=== PATIENT | female | born 1985 | race Caucasian/White ===

== ENCOUNTER → 2016-04-16 | Outpatient (CLI) | payer OTHER | END | disposition home or self-care (01) | LOC: C.PAPS 11:40 | PROVIDERS: ATTEND Obstetrics & Gynecology | DX: Z12.4 Encounter for screening for malignant neoplasm of cervix (principal); A63.0 Anogenital (venereal) warts ==

== ENCOUNTER → 2016-07-20 | Outpatient (CLI) | payer OTHER ==
[~2016-07-20] MED LIST: ARTIOIN OP; CETITAB27 PO; CHOL1TAB42 PO; FLUT0.15 INH; NAPR1TAB9 PO; PRED20TA2 PO; VALA1TAB31 PO
[2016-07-20 12:54] LABS: CHOLESTEROL/HDL RATIO 3.1
== END | disposition home or self-care (01) ==
LOC: C.LABBFT 07:37
PROVIDERS: ATTEND Internal Medicine
DX: Z00.00 Encounter for general adult medical examination without abnormal findings (principal)

== ENCOUNTER 2016-12-11 18:23 | Emergency (ER) | payer OTHER ==
[~2016-12-11] VITALS: Ht 162.6 cm; Wt 99.4 kg
[2016-12-11 18:30] VITALS: TEMP 37.1; Ht 162.6 cm; Wt 99.4 kg
[2016-12-11] MEDS ORDERED: CHOL1TAB42 PO (18:58)
[2016-12-11] MEDS ORDERED: CETITAB27 PO (18:58)
[2016-12-11] MEDS ORDERED: NAPR1TAB9 PO (18:58)
[2016-12-11] MEDS ORDERED: FLUT0.15 INH (18:58)
--- NOTE | 2016-12-11 19:03 | EMERGENCY ROOM VISIT NOTE ---
History First contact with patient: 18:37 Chief Complaint: HEADACHE Stated Complaint: LEFT SIDE FACIAL NUMBNESS, METAL TASTE,HEADACHE History of Present Illness The patient is a 31 year old female who presents to the Emergency Room with complaints of neurologic symptoms that started at approximately 1745 this evening. The patient reports fighting a cold with a runny nose for the last 5 days. She has been taking urta-vas-pgnohcn the medication with good symptomatic relief. She denies any fever or chills. The patient left work early today because of a headache. She laid down for a nap. When she woke up around 1745, she noticed that the left side of her face felt numb. She also complains of a metallic taste with the left side of her tongue. She also thinks that the right side of her face may be weak. She denies any weakness in her extremities. No slurred speech or confusion. The headache is improving. Review of Systems 10 system review performed and negative unless noted in HPI or below Past Medical/Surgical History Asthma Social History Smoking Status: Never Smoker Marital Status: Housing Status: lives with significant other Occupation Status: employed Current/Historical Medications Scheduled Cholecalciferol (Vitamin D), 1 TAB PO DAILY Fluticasone Propionate (Nasal) (Flonase Allergy Relief), 1 SPRAY INH BID Naproxen (Aleve), 220 MG PO prn ud Scheduled PRN Cetirizine/Pseudoephedrine (Zyrtec-D Er 5MG/120MG), 1 TAB PO Q12H PRN for Seasonal Allergies Physical Exam Vital Signs Date Time Temp Pulse Resp B/P (MAP) Pulse Ox O2 Delivery O2 Flow Rate FiO2 12/11/16 18:30 37.1 85 18 135/88 100 Room Air Physical Exam VITALS: Vitals are noted on the nurse's note and reviewed by myself. Vital signs stable. GENERAL: 31-year-old female, slightly anxious in appearance, nondiaphoretic, well-developed well-nourished. SKIN: The skin was without rashes, erythema, edema, or bruising. HEAD: Normocephalic atraumatic. EARS: External auditory canals clear, tympanic membranes pearly molina without erythema or effusion bilaterally. EYES: Pupils equal round and reactive to light and accommodation. Conjunctivae without injection, sclerae without icterus. Extraocular movements intact. MOUTH: Mucous membranes moist. Tonsils are not enlarged. Pharynx without erythema or exudate. Uvula midline. Airway patent. Tongue does not deviate. NECK: Supple without nuchal rigidity. No lymphadenopathy. HEART: Regular rate and rhythm without murmurs gallops or rubs. LUNGS: Clear to auscultation bilaterally without wheezes, rales or rhonchi. No accessory muscle use. ABDOMEN: Positive bowel sounds x 4.Soft, nontender, without organomegaly. No guarding or rebound tenderness. MUSCULOSKELETAL: Strength 5/5 throughout. NEURO: Patient was alert and oriented to person place and time. Right-sided facial droop noted. Subjective numbness on the left side of the face. Cerebellar function intact. Negative Romberg. Strength otherwise 5/5 throughout. Medical Decision & Procedures ER Provider Diagnostic Interpretation: CT head without contrast IMPRESSION: No acute intracranial abnormality. Laboratory Results 12/11/16 19:01 Red Blood Count 4.30, Mean Corpuscular Volume 90.7, Mean Corpuscular Hemoglobin 29.8, Mean Corpuscular Hemoglobin Concent 32.8, Mean Platelet Volume 8.8, Neutrophils (%) (Auto) 64.8, Lymphocytes (%) (Auto) 27.6, Monocytes (%) (Auto) 6.3, Eosinophils (%) (Auto) 0.9, Basophils (%) (Auto) 0.3, Neutrophils # (Auto) 4.41, Lymphocytes # (Auto) 1.88, Monocytes # (Auto) 0.43, Eosinophils # (Auto) 0.06, Basophils # (Auto) 0.02 12/11/16 19:01 Test 12/11/16 19:01 12/11/16 19:10 White Blood Count 6.81 K/uL (4.8-10.8) Red Blood Count 4.30 M/uL (4.2-5.4) Hemoglobin 12.8 g/dL (12.0-16.0) Hematocrit 39.0 % (37-47) Mean Corpuscular Volume 90.7 fL (80-100) Mean Corpuscular Hemoglobin 29.8 pg (25-34) Mean Corpuscular Hemoglobin Concent 32.8 g/dl (32-36) Platelet Count 257 K/uL (130-400) Mean Platelet Volume 8.8 fL (7.4-10.4) Neutrophils (%) (Auto) 64.8 % Lymphocytes (%) (Auto) 27.6 % Monocytes (%) (Auto) 6.3 % Eosinophils (%) (Auto) 0.9 % Basophils (%) (Auto) 0.3 % Neutrophils # (Auto) 4.41 K/uL (1.4-6.5) Lymphocytes # (Auto) 1.88 K/uL (1.2-3.4) Monocytes # (Auto) 0.43 K/uL (0.11-0.59) Eosinophils # (Auto) 0.06 K/uL (0-0.5) Basophils # (Auto) 0.02 K/uL (0-0.2) RDW Standard Deviation 39.7 fL (36.4-46.3) RDW Coefficient of Variation 12.1 % (11.5-14.5) Immature Granulocyte % (Auto) 0.1 % Immature Granulocyte # (Auto) 0.01 K/uL (0.00-0.02) Anion Gap 7.0 mmol/L (3-11) Est Creatinine Clear Calc Drug Dose 102.9 ml/min Estimated GFR () 98.1 Estimated GFR (Non- 84.6 BUN/Creatinine Ratio 15.2 (10-20) Calcium Level 8.6 mg/dl (8.5-10.1) Total Bilirubin 0.3 mg/dl (0.2-1) Aspartate Amino Transf (AST/SGOT) 12 U/L (15-37) Alanine Aminotransferase (ALT/SGPT) 16 U/L (12-78) Alkaline Phosphatase 100 U/L (45-117) Total Protein 6.8 gm/dl (6.4-8.2) Albumin 3.5 gm/dl (3.4-5.0) Globulin 3.3 gm/dl (2.5-4.0) Albumin/Globulin Ratio 1.1 (0.9-2) Lyme Disease IgG Antibody NEG (NEG) Lyme Disease IgM Antibody NEG (NEG) Urine Test NEG (NEG) Medications Administered Medications (Trade) Dose Ordered Sig/Cat Route Start Time Stop Time Status Last Admin Dose Admin Artificial Tears (Lacri-Lube Oph Oint) 1 appln NOW ONCE OP 12/11/16 19:30 12/11/16 19:31 DC 12/11/16 19:28 1 APPLN ED Course Patient was seen and examined Vital signs including blood pressure were reviewed medications list was verified with patient Labs were obtained, and a saline lock was established Imaging was performed and reviewed Lacri-Lube was applied to the right eye. The patient was reassessed and resting comfortably. We discussed the results of her workup. She voiced understanding. I reviewed discharge instructions the patient. They voiced understanding and had no further questions. Medical Decision Differential diagnosis: Llanes's palsy, other viral syndrome, disseminated Lyme disease, CVA, vertebral artery dissection, This patient is a 31-year-old female that presents to the emergency department with right-sided facial droop and left-sided facial numbness. My thought was that this was likely Llanes's palsy or possibly disseminated Lyme disease. A CT of the head was performed. No acute findings were noted. Her Lyme screen is negative. Her lab work is unremarkable. 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 The patient will be treated with valacyclovir and prednisone. She was counseled on eye care. She will follow-up with her primary care physician for recheck next week. She will also follow-up with an mineralogy professor to prevent damage to the cornea. She agreed to return to the emergency department immediately with any worsening headache or neck pain. She is comfortable with this plan, was discharged in good condition This chart was completed in part utilizing [employer] Speech Voice Recognition software. Attempts were made to minimize the grammatical errors, random word insertions, pronoun errors and incomplete sentences. Any formal questions or concerns about the content, text or information contained within the body of this dictation should be directly addressed to the provider for clarification. Medication Reconcilliation Current Medication List: was personally reviewed by me Blood Pressure Screening Patient's blood pressure: Normal blood pressure Impression Primary Impression: Llanes's palsy Departure Information Dispostion Home / Self-Care Condition FAIR Prescriptions Valacyclovir Hcl (VALTREX) 1 Gm Tab 1 TAB PO TID for 7 Days, #21 TAB Prov: Misa Rondon PA-C 12/11/16 Prednisone (Prednisone Tab) 20 Mg Tab 4 TAB PO DAILY for 7 Days, #28 TAB 3 TABS DAILY FOR 2 DAYS, THEN 2 TABS DAILY FOR 2 DAYS, THEN 1 TAB DAILY FOR 2 DAYS, THEN 1/2 TAB DAILY FOR 2 DAYS. Prov: Misa Rondon PA-C 12/11/16 Artificial Tears Oph Oint (Lacri-Lube Sop Oph Oint) Oint 0.25-0.5 INCH OP QID, #1 TUBE TO THE AFFECTED EYE UP TO QID PRN Prov: Misa Rondon PA-C 12/11/16 Referrals Ruth Oconnell M.D. (PCP) Travon Keating M.D. Patient Instructions My [facility] Additional Instructions You were evaluated in the emergency department with neurologic symptoms of your face. It appears that you have Llanes's palsy. This will be treated with an antiviral medication and steroids. Please finish the entire course of valacyclovir. Please also finish the entire course of prednisone. Eye care is very important. Please apply Lacri-Lube to the right eye every 4 hours and every 2 hours as needed. You may substitute artificial tears during the day if the Lacri-Lube is causing difficulty with your vision. Please follow-up with your primary care physician next week for a recheck. Please follow-up with your mineralogy professor for ongoing eye care. Return immediately to the emergency department with any of the following symptoms -Severe headache or neck pain -New weakness -Fever
[2016-12-11 19:16] LABS: BASO % 0.3 %; BASO ABS # 0.02 K/uL (0-0.2); COMPLETE YES; EOS % 0.9 %; IG% 0.1 %; LYMPH % 27.6 %; LYMPH ABS # 1.88 K/uL (1.2-3.4); MEAN CELL VOLUME 90.7 fL (80-100); MEAN CORPUSCULAR HEMOGLOBIN 29.8 pg (25-34); MEAN CORPUSCULAR HGB CONC 32.8 g/dl (32-36); MEAN PLATELET VOLUME 8.8 fL (7.4-10.4); MONO % 6.3 %; NEUT % 64.8 %; PLATELET COUNT 257 K/uL (130-400); WHITE BLOOD COUNT 6.81 K/uL (4.8-10.8)
[2016-12-11] MEDS ORDERED: ARTIFICIAL TEARS OP OINT 3.5 GM TUBE OP ONE (19:30)
[2016-12-11 19:33] LABS: BUN/CREATININE RATIO 15.2 (10-20); CALCIUM 8.6 mg/dl (8.5-10.1); CREATININE 0.9 mg/dl (0.60-1.20); POTASSIUM 4.1 mmol/L (3.5-5.1)
[2016-12-11 19:35] LABS: ALB/GLOB RATIO 1.1 (0.9-2)
--- NOTE | 2016-12-11 19:44 | DIAGNOSTIC IMAGING REPORT ---
CT SCAN OF THE BRAIN WITHOUT IV CONTRAST CLINICAL HISTORY: Right-sided facial paralysis. Left facial numbness. Headache. COMPARISON STUDY: No priors. TECHNIQUE: Unenhanced axial CT scan of the brain is performed from the vertex to the skull base. A dose lowering technique was utilized adhering to the principles of ALARA. CT DOSE: 537.48 mGy.cm FINDINGS: Brain parenchyma: The brain parenchyma is normal in appearance. There is no hemorrhage, mass effect, or evidence of acute territorial ischemia by CT criteria. Ibarra-white matter is preserved. No extra-axial fluid collection is seen. Ventricles, sulci, cisterns: Normal in configuration. Intracranial vasculature: The visualized intracranial vasculature at the skull base is normal in appearance. Calvarium: Unremarkable. Sinuses and mastoids: The visualized paranasal sinuses are clear. The mastoid air cells are well pneumatized. Orbits: The bony orbits are grossly intact. IMPRESSION: No acute intracranial abnormality. Electronically signed by: Boston Garcia M.D. 12/11/2016 7:42 PM Dictated Date/Time: 12/11/2016 7:41 PM
[2016-12-11 20:08] LABS: LYME DISEASE AB IGG NEG (NEG); LYME DISEASE AB IGM NEG (NEG)
[2016-12-11] MEDS ORDERED: PRED20TA2 PO (20:28)
[2016-12-11] MEDS ORDERED: ARTIOIN OP (20:28)
[2016-12-11] MEDS ORDERED: VALA1TAB31 PO (20:28)
[2016-12-11 20:52] VITALS: BP 111/69; PULSE 70; O2SAT 100
== END 2016-12-11 20:53 | disposition home or self-care (01) ==
LOC: C.EDB 18:25
DX: G51.0 Bell's palsy (principal); J45.909 Unspecified asthma, uncomplicated

== ENCOUNTER → 2017-04-21 | Outpatient (CLI) | payer OTHER ==
[~2017-04-21] MED LIST changes: -PRED20TA2 PO; -VALA1TAB31 PO
== END | disposition home or self-care (01) ==
LOC: C.PAPS 12:26
PROVIDERS: ATTEND Obstetrics & Gynecology
DX: Z12.4 Encounter for screening for malignant neoplasm of cervix (principal)

== ENCOUNTER → 2017-05-20 | Outpatient (CLI) | payer OTHER ==
--- NOTE | 2017-05-20 16:16 | DIAGNOSTIC IMAGING REPORT ---
L TIBIA/FIBULA 2 VIEWS, R TIBIA/FIBULA 2 VIEWS HISTORY: 31 years-old Female B/L MARTINEZ PAIN acute bilateral mid tibial pain COMPARISON: None available TECHNIQUE: 2 views of the bilateral tibia and fibula FINDINGS: RIGHT: No acute fracture, dislocation or significant degenerative changes. 7 mm corticated bone fragment is noted adjacent to the distal fibula suggesting accessory ossicle or healed remote fracture fragment. No opaque foreign body. LEFT: There is no acute fracture, dislocation, significant degenerative changes or opaque foreign body. Soft tissues are within normal limits. IMPRESSION: No acute fracture or dislocation. The above report was generated using voice recognition software. It may contain grammatical, syntax or spelling errors. Electronically signed by: Lacho Corey M.D. 05/20/2017 4:14 PM Dictated Date/Time: 05/20/2017 4:12 PM
== END | disposition home or self-care (01) ==
LOC: C.RDSM 15:57
PROVIDERS: ATTEND Internal Medicine
DX: M79.669 Pain in unspecified lower leg (principal)

== ENCOUNTER → 2017-09-29 | Outpatient (CLI) | payer OTHER ==
[~2017-09-29] MED LIST changes: -ARTIOIN OP
== END | disposition home or self-care (01) ==
LOC: C.LABBFT 07:40
PROVIDERS: ATTEND Physician Assistant Medical
DX: Z00.00 Encounter for general adult medical examination without abnormal findings (principal)

== ENCOUNTER 2018-09-07 23:13 | Inpatient (IN) ==
[2018-09-08] MEDS ORDERED: OXYTOCIN 30 UNITS/500 ML BAG IV PRN ×3 (01:32→07:28)
[2018-09-08] MEDS ORDERED: BUPIVACAINE 0.25% 30 ML VIAL ONE (01:33)
[2018-09-08] MEDS ORDERED: fentaNYL 2MCG/ML ROPIV 1.25MG/ML 100 ML BAG EPI ONE (01:34)
[2018-09-08] MEDS ORDERED: fentaNYL citrate 100 MCG/2 ML VIAL ONE (01:34)
[2018-09-08] MEDS ORDERED: ePHEDrine sulfate 50 MG/ML AMP ONE (01:34)
[2018-09-08] MEDS: LACTATED RINGER'S 1,000 ML IV PRN ×2 (01:40→02:48)
[2018-09-08] MEDS ORDERED: CALCIUM CARBONATE 500 MG CHEWABLE TAB PO PRN (01:58)
[2018-09-08 01:59] LABS: Hematocrit (blood only) 37.4 % (37-47); Hemoglobin 12.6 g/dL (12.0-16.0); Mean Corpuscular Volume 89.7 fL (80-100); Mean Platelet Volume 9.9 fL (7.4-10.4); Platelet Count 232 K/uL (130-400); RDW Coefficient of Variation 14.4 % (11.5-14.5); RDW Standard Deviation 46.6 fL (36.4-46.3); Red Blood Count 4.17 M/uL (4.2-5.4); White Blood Count 13.53 K/uL (4.8-10.8)
[2018-09-08 02:01] LABS: Mean Corpuscular Hgb Conc 33.7 g/dL (32-36)
[2018-09-08] MEDS ORDERED: NALOXONE HCL 1 MG in SODIUM CHLORIDE 0.9% 1000ML 1,000 ML IV PRN (02:56)
[2018-09-08] MEDS ORDERED: DiphenhydrAMINE HCL 50 MG/ML VIAL IV PRN (02:56)
[2018-09-08] MEDS ORDERED: ONDANSETRON INJ 2 MG/ML 2 ML VIAL IV PRN (02:56)
[2018-09-08] MEDS ORDERED: NALOXONE HCL 0.4 MG/1 ML VIAL/CARP IV PRN (02:56)
[2018-09-08] MEDS ORDERED: NALBUPHINE HCL INJ 10 MG/ML AMP IV PRN (02:56)
[2018-09-08] MEDS ORDERED: PROMETHAZINE HCL 6.25 MG in SODIUM CHLORIDE 0.9% 50 ML IV PRN (02:56)
[2018-09-08] MEDS ORDERED: ePHEDrine sulfate 50 MG/ML AMP IV PRN (02:56)
[2018-09-08] MEDS ORDERED: fentaNYL 2MCG/ML ROPIV 1.25MG/ML 100 ML BAG EPI PRN (02:56)
--- NOTE | 2018-09-08 02:56 | Anesthesiology Consultation ---
Date of Service September 08, 2018 Assessment & Plan (1) Encounter for pre-operative examination: Chart Review Chart Review: Patient NOT seen in Pre Admission Testing and Acceptable Risk for Labor Epidural Consults Requested none ASA ASA3 Proposed Anesthesia Anesthesia Type: Labor Epidural Risk / Benefits Reviewed With: PT / POA / Parent / Guardian, Accepts Plan and Informed Consent Obtained History Height/Weight Height: 5 ft 4 in Weight: 126.099 kg Allergies Allergy/AdvReac Type Severity Reaction Status Date / Time amoxicillin Allergy Severe HIVES Verified 12/11/16 19:00 Medications Home Medications Medication Instructions Recorded Confirmed Last Taken albuterol sulfate [Ventolin HFA] 2 puff INHALATION QID PRN 09/08/18 09/08/18 Unknown cetirizine [Zyrtec] 10 mg PO DAILY 09/08/18 09/08/18 09/07/18 08:00 lansoprazole [Prevacid] 15 mg PO DAILY 09/08/18 09/08/18 09/07/18 08:00 methylcellulose (laxative) 500 mg PO DAILY 09/08/18 09/08/18 09/07/18 08:00 [Citrucel] vit no.[id number] 1 tab PO DAILY 09/08/18 09/08/18 09/07/18 08:00 [ Vitamin] Active Medications Generic Name Dose Route Start Last Admin Trade Name Freq PRN Reason Stop Dose Admin Lactated Ringer's 1,000 mls @ 125 mls/hr 09/08/18 01:32 09/08/18 02:49 Lr IV 09/10/18 01:31 125 mls/hr .Q8H PRN Infusion L&D Protocol Protocol Past Medical History Medical History Anxiety No meds Llanes's palsy 2016; 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 Depression No meds Exercise-induced asthma Inhaler prn GERD (gastroesophageal reflux disease) On meds HPV (human papilloma virus) infection 2011 and 2012 IBS (irritable bowel syndrome) On meds Exercise / Class Metabolic Activity II 4-5 Yardwork/Stairs/Walk up hill Past Surgical History Surgical History History of colposcopy 2011 and 2012 Hx of LASIK 2010 Past Anesthesia History No Hx of Anesthesia Complications and No Family Hx of Anesthesia Complications History of PONV No Hx of PONV and No Hx of Motion Sickness Social History Smoking Status: Never smoker Do You Dip or Chew Tobacco: No Hx Alcohol Use: No Hx Substance Use: No substance use type: does not use Physical Exam Vital Signs Last Vital Signs Temp 37.0 C 09/07/18 23:29 Pulse 97 H 09/08/18 02:55 Resp 18 09/07/18 23:29 BP 138/73 09/08/18 02:55 Pulse Ox 99 09/08/18 02:54 ENMT Mouth: no dentition abnormality Thyromental Distance: > or= 3.5 Finger Breadths Mallampati Class: II Neck normal visual inspection Respiratory normal respiratory effort Auscultation: lungs clear to auscultation bilaterally Cardiovascular Rate/Rhythm: regular rate and regular rhythm Psychiatric Orientation: alert Testing Laboratory Results 09/08/18 01:50
--- NOTE | 2018-09-08 06:16 | History & Physical Report ---
Date of Service September 08, 2018 Assessment & Plan (1) 39 weeks gestation of : (2) Normal labor: (3) Thin meconium stained amniotic fluid: will start 2nd stage, fhts categ 1 History of Present Illness Chief Complaint: regular ctx Primary Care Provider: Ruth Oconnell MD 33yo at 39+wks natalia presents to L&D with cc as noted. She contracted all day yesterday and then around midnight called and noted they were closer. Initial exam for nurse 3cm and then followup check 5cm, with regular ctx. No rom, no vb. +FM. pnc c/b 1. obesity 2. asthma 3. sleep disorder pnl rh pos, ri, gbs neg obh: g1 gynh: colpo x 2, nl recent pap, no stds pmh: anxiety, exercise asthma psh: lasik Allergies Allergy/AdvReac Type Severity Reaction Status Date / Time amoxicillin Allergy Severe HIVES Verified 12/11/16 19:00 Home Medications Home Medications Medication Instructions Recorded Confirmed Type albuterol sulfate [Ventolin HFA] 2 puff INHALATION QID PRN 09/08/18 09/08/18 History cetirizine [Zyrtec] 10 mg PO DAILY 09/08/18 09/08/18 History lansoprazole [Prevacid] 15 mg PO DAILY 09/08/18 09/08/18 History methylcellulose (laxative) 500 mg PO DAILY 09/08/18 09/08/18 History [Citrucel] vit no.[id number] 1 tab PO DAILY 09/08/18 09/08/18 History [ Vitamin] Patient History Medical History Anxiety No meds Llanes's palsy 2016; 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 Depression No meds Exercise-induced asthma Inhaler prn GERD (gastroesophageal reflux disease) On meds HPV (human papilloma virus) infection 2011 and 2012 IBS (irritable bowel syndrome) On meds Surgical History History of colposcopy 2011 and 2012 Hx of LASIK 2009 Social History Preferred Language: Khmer Communication Ability: Effective 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 Beliefs That Will Affect Care: None marital status: Current Living Situation: Spouse Other Information That Helps Us Care for You: No Feels Safe at Home: Yes Safety Concerns: Feels Safe At This Time Smoking Status: Never smoker Do You Dip or Chew Tobacco: No Second Hand Exposure: No Tobacco Cessation Education Requested by Patient: No Hx Alcohol Use: No Hx Substance Use: No Review of Systems per hpi Physical Exam Constitutional: WD/WN, vitals as above Gastrointestinal (Abdomen): gravid nt efw 8# Neurologic: grossly normal Genitourinary: OB Exam Abdomen: + vertex Manual OB Exam: + cervical dilation 10 cm, + cervical effacement 100% and + station + 3 OB Exam Monitor Tracing: + external FHT monitor used (125 mod variability, early decels), + external uterine monitor used (q2-4) and + category I Results & Data Vital Signs (Past 12 Hours) Vital Signs Temp Pulse Resp BP Pulse Ox 09/08/18 06:09 96 H 100 09/08/18 06:04 83 99 09/08/18 06:02 78 119/75 09/08/18 05:59 89 99 09/08/18 05:54 90 98 09/08/18 05:49 80 98 09/08/18 05:47 76 124/76 09/08/18 05:44 85 98 09/08/18 05:39 82 99 09/08/18 05:34 80 99 09/08/18 05:32 74 128/73 09/08/18 05:30 18 09/08/18 05:29 74 98 09/08/18 05:24 78 100 09/08/18 05:19 90 99 09/08/18 05:17 81 119/65 09/08/18 05:14 87 98 09/08/18 05:09 80 97 09/08/18 05:04 82 98 09/08/18 05:02 86 115/61 09/08/18 05:00 18 09/08/18 04:59 81 99 09/08/18 04:55 87 93 09/08/18 04:54 90 100 09/08/18 04:49 77 98 09/08/18 04:47 80 122/61 09/08/18 04:44 81 97 09/08/18 04:39 75 98 09/08/18 04:34 76 97 09/08/18 04:32 73 125/63 09/08/18 04:30 18 09/08/18 04:29 75 98 09/08/18 04:24 86 97 09/08/18 04:19 81 100 09/08/18 04:17 67 129/62 09/08/18 04:14 78 99 09/08/18 04:10 36.5 C 18 09/08/18 04:09 77 97 09/08/18 04:04 90 99 09/08/18 04:02 78 131/73 09/08/18 04:00 18 09/08/18 03:59 83 97 09/08/18 03:54 82 97 09/08/18 03:49 83 96 09/08/18 03:47 80 128/72 09/08/18 03:44 83 97 09/08/18 03:39 83 98 09/08/18 03:34 80 99 09/08/18 03:33 75 125/69 09/08/18 03:29 80 99 09/08/18 03:24 81 100 09/08/18 03:19 78 99 09/08/18 03:17 85 110/61 09/08/18 03:14 90 99 09/08/18 03:09 96 H 99 09/08/18 03:04 88 99 09/08/18 03:01 96 H 136/69 09/08/18 03:00 18 09/08/18 02:59 99 H 100 09/08/18 02:55 97 H 138/73 09/08/18 02:54 96 H 99 09/08/18 02:52 94 H 145/78 H 09/08/18 02:50 106 H 142/79 H 09/08/18 02:49 94 H 98 09/08/18 02:48 99 H 143/77 H 09/08/18 02:47 89 145/82 H 09/08/18 02:44 91 H 142/79 H 100 09/08/18 02:42 87 141/80 H 09/08/18 02:40 85 140/77 09/08/18 02:39 92 H 135/80 98 09/08/18 02:35 87 139/92 09/08/18 02:34 88 97 09/08/18 02:29 104 H 98 09/07/18 23:34 77 132/83 09/07/18 23:29 37.0 C 77 18 132/83
[2018-09-08] MEDS ORDERED: ALBUTEROL HFA 8 GM INHALER INH PRN (07:28)
[2018-09-08] MEDS ORDERED: SUPERCREAM 0.870% 15 GM JAR EXT PRN (07:28)
[2018-09-08] MEDS ORDERED: BENZOCAINE 20% AER SPR 82.5 GM CAN EXT PRN (07:28)
[2018-09-08] MEDS ORDERED: ACETAMINOPHEN 325 MG TAB PO PRN (07:28)
[2018-09-08] MEDS ORDERED: HYDROCORTISONE ACETATE 25 MG SUPP PR PRN (07:28)
[2018-09-08] MEDS ORDERED: OXYCODONE/ACETAMINOPHEN 5mg/325mg TAB PO PRN (07:28)
[2018-09-08] MEDS ORDERED: OXYTOCIN 20 UNITS in LACTATED RINGER'S 1,000 ML IV SCH (07:30)
--- NOTE | 2018-09-08 07:31 | Delivery Summary ---
DATE OF OPERATION: 09/08/2018 The patient dilated to complete and pushed to deliver a viable male , Apgars 8 and 9 via over partial third-degree laceration. Mouth and nose bulb suctioned at the perineum. Loose nuchal cord reduced x1. The shoulders and body delivered with ease. The was vigorous and crying at . Thin meconium had been noted through her labor. Cord clamped at 30 seconds of life and infant to maternal abdomen where the cord was then doubly clamped and cut. Placenta delivered spontaneously and intact, 3-vessel cord. Hemostasis achieved with dilute Pitocin and uterine massage. Bladder drained under sterile conditions for approximately 100 mL of clear yellow urine. Laceration repaired in usual fashion, first by reapproximating the sphincter capsule with 2-0 Vicryl interrupted sutures followed by routine repair of the perineal laceration with 3-0 Vicryl. Mother and baby stable in recovery. EBL 300 mL. I attest to the content of the Intraoperative Record and any orders documented therein. Any exception s are noted below.
[2018-09-08] MEDS ORDERED: DIPHTHERIA/TETANUS/PERTUSSIS 0.5 ML SYR/VIAL IM ONE (07:34)
[2018-09-08] MEDS ORDERED: METHYLCELLULOSE 500 MG PO SCH (09:00)
--- NOTE | 2018-09-08 09:03 | Anesthesia Procedure Note ---
Date of Service September 08, 2018 Anesthesia Post Epidural Note Vital Signs Vital Signs: Temp Pulse Resp BP Pulse Ox 36.7 C 96 H 18 134/83 92 09/08/18 06:13 09/08/18 08:59 09/08/18 06:30 09/08/18 08:59 09/08/18 07:27 Pain Intensity Bilateral Abdomen: Pain Intensity: 3 Notes Mental Status: alert / awake / arousable Patient Amnestic to Procedure: No Nausea / Vomiting: adequately controlled Pain: adequately controlled Airway Patency, RR, SpO2: stable & adequate BP & HR: stable & adequate Hydration State: stable & adequate Neuraxial Anesthesia: was administered and sensory block resolved Anesthetic Complications: no major complications apparent and Pt Satisfied with anesthetic care
[2018-09-08] MEDS: PRENATAL VITAMIN 1 TAB PO SCH (09:35)
[2018-09-08] MEDS: DOCUSATE SODIUM 100 MG CAP PO SCH ×2 (09:35→20:25)
[2018-09-08] MEDS: PANTOprazole 40 MG TAB PO SCH (09:35)
[2018-09-08] MEDS: CETIRIZINE HCL 10 MG TABLET PO SCH (09:35)
[2018-09-08] MEDS: IBUPROFEN 600 MG TAB PO PRN ×2 (15:21→20:25)
[2018-09-09] MEDS: IBUPROFEN 600 MG TAB PO PRN ×3 (02:33→21:30)
--- NOTE | 2018-09-09 07:21 | Obstetrical Progress Note ---
Date of Service September 09, 2018 doing well. no extremity pain min bleeding Assessment & Plan (1) Thin meconium stained amniotic fluid: ContinueCurrent care Physical Exam Constitutional WD/WN, vitals as above Respiratory normal respiratory effort, lungs clear to auscultation Cardiovascular RRR, no murmur, no edema Genitourinary no ext tenderness Results & Data Vital Signs (Past 12 Hours) Vital Signs Temp Pulse Resp BP Pulse Ox 09/09/18 03:38 36.8 C 72 20 107/70 97 09/08/18 23:00 36.8 C 86 20 133/83 97 09/08/18 20:00 36.5 C 78 20 113/74 98
[2018-09-09] MEDS: DOCUSATE SODIUM 100 MG CAP PO SCH ×2 (09:16→21:30)
[2018-09-09] MEDS: PRENATAL VITAMIN 1 TAB PO SCH (09:17)
[2018-09-09] MEDS: CETIRIZINE HCL 10 MG TABLET PO SCH (09:17)
[2018-09-09] MEDS: PANTOprazole 40 MG TAB PO SCH (09:17)
[2018-09-10] MEDS: IBUPROFEN 600 MG TAB PO PRN (05:23)
--- NOTE | 2018-09-10 08:23 | Obstetrical Progress Note ---
Date of Service September 10, 2018 Assessment & Plan (1) Encounter for care and examination after delivery: satisfactory course discharge to home follow up in 6 weeks Present on Admission?: No Day #:: 2 Subjective Ambulation: ambulating normally Voiding: no voiding problems Passing Gas:: Yes Diet Tolerance:: regular diet Lochia:: Small Feeding Type:: breast feeding Review of Systems All systems reviewed & are unremarkable except as noted in HPI & below Physical Exam Constitutional WD/WN, vitals as above Gastrointestinal (Abdomen) normal bowel sounds, soft, nontender, no hepatosplenomegaly Genitourinary OB Exam Abdomen: + fundal height Fundus: + firm and + relation to umbilicus (2 below U) Results & Data Vital Signs (Past 12 Hours) Vital Signs Temp Pulse Resp BP Pulse Ox 09/10/18 00:10 37.0 C 88 16 107/70 96
[2018-09-10] MEDS: PRENATAL VITAMIN 1 TAB PO SCH (09:29)
[2018-09-10] MEDS: DOCUSATE SODIUM 100 MG CAP PO SCH (09:29)
[2018-09-10] MEDS: CETIRIZINE HCL 10 MG TABLET PO SCH (11:07)
[2018-09-10] MEDS: PANTOprazole 40 MG TAB PO SCH (11:07)
[2018-09-10 12:43] VITALS: O2SAT 97
[2018-09-10 12:45] VITALS: BP 118/78; PULSE 88; TEMP 98.2
== END 2018-09-10 15:46 | disposition home or self-care (01) | DRG 768 ==
LOC: OPB 23:13 → 4S1 23:14 → 4S2 09-08 11:20

== ENCOUNTER 2020-11-13 16:14 | Inpatient (IN) ==
[2020-11-13] MEDS ORDERED: OXYTOCIN 30 UNITS/500 ML BAG IV PRN ×2 (17:09)
--- NOTE | 2020-11-13 17:38 | History & Physical Report ---
Date of Service November 13, 2020 Assessment & Plan (1) Encounter for supervision of normal in multigravida, antepartum: Plan: Admit to L&D. EFm/toco. Epidural when she desires. Labs. COVID swab per protocol. History of Present Illness Chief Complaint: labor Primary Care Provider: Ruth Oconnell MD 35yo @ 38 05/05, spontaneous labor. AMA *weekly NST's @ 36wks. LGA *normal 2hr gtt Obesity *BMI 35 or >At start of preg, growth US @ 32wks--> LGA, repeat in 4wks Allergies Allergy/AdvReac Type Severity Reaction Status Date / Time amoxicillin Allergy Severe HIVES Verified 11/13/20 15:35 Home Medications Medication Instructions Recorded Confirmed Type albuterol sulfate 90 mcg/actuation 2 puff INHALATION UD PRN gm 10/07/18 11/13/20 History aerosol inhaler (Ventolin HFA) prenat.vits,noé,nau-uvvq-ywxnq 1 tab PO DAILY 12/26/19 11/13/20 History lansoprazole 15 mg capsule,delayed 15 mg PO DAILY 03/06/20 11/13/20 History release doxylamine succinate 25 mg tablet 25 mg PO HS PRN tab 04/08/20 11/13/20 History (Unisom (doxylamine)) plexus PO 04/08/20 11/13/20 History pyridoxine (vitamin B6) [Vitamin PO 05/22/20 11/13/20 History B-6] breast pump #1 ea 11/01/20 11/13/20 Rx breast pump #1 ea 11/01/20 11/13/20 Rx Patient History Medical History Anxiety Llanes's palsy Depression Exercise-induced asthma GERD (gastroesophageal reflux disease) HPV (human papilloma virus) infection IBS (irritable bowel syndrome) Thin meconium stained amniotic fluid Surgical History History of colposcopy Hx of LASIK Family History Sister Anxiety Mother Endometriosis Hypertension Dyslipidemia Grandmother (Maternal) Breast cancer, Onset Age: 40 Multiple gestation Grandmother (Paternal) Colorectal cancer, Onset Age: 75 Depression Diabetes Multiple gestation Father Depression Diabetes Hypertension Uncle Diabetes Denies family history of Ovarian cancer Prostate cancer Uterine cancer Social History Smoking Status: Never smoker Second Hand Exposure: No; Hx Alcohol Use: No Hx Substance Use: No Preferred Language: Kazakh Communication Ability: Effective Gold Tooler Required: No Beliefs That Will Affect Care: None marital status: marital status details: Oscar(39) [phone] Current Living Situation: Family Current Living Situation Comment: 2 year old Dannie current occupational status: unemployed Other Information That Helps Us Care for You: No Feels Safe at Home: Yes Safety Concerns: Feels Safe At This Time Assistive Devices: None Review of Systems All systems reviewed & are unremarkable except as noted in HPI & below Physical Exam Physical Exam: FHT Cat 1 [place] Q 4 SVE 4/90/-2, bulging membranes Constitutional: WD/WN, vitals as above Respiratory: normal respiratory effort, lungs clear to auscultation no respiratory distress Cardiovascular: Rate/Rhythm: regular rate and regular rhythm Gastrointestinal (Abdomen): Inspection/Auscultation: abdomen normal to inspection Percussion/Palpation: abdomen soft; abdomen nontender Gravid. No s/s chorio or abruption. Skin: no rashes, warm and dry Psychiatric: A+Ox3, euthymic affect Results & Data ([facility]) Vital Signs (Past 12 Hours) Vital Signs Temp Pulse Resp BP Pulse Ox 11/13/20 17:09 95 H 98 11/13/20 17:04 97 H 99 11/13/20 16:59 96 H 99 11/13/20 16:54 97 H 98 11/13/20 16:49 97 H 98 11/13/20 16:47 36.8 C 94 H 20 113/63 99 11/13/20 16:44 96 H 98 11/13/20 16:41 90 113/63 11/13/20 16:39 102 H 99 11/13/20 16:34 83 98 Coding Level of Care Code None Diagnoses Encounter for supervision of normal in multigravida, antepartum Z3 4.80
[2020-11-13 17:42] LABS: Hematocrit (blood only) 35.7 % (37-47); Hemoglobin 11.4 g/dL (12.0-16.0); Mean Corpuscular Hemoglobin 26.9 pg (25-34); Mean Corpuscular Hgb Conc 31.9 g/dL (32-36); Mean Corpuscular Volume 84.2 fL (80-100); Mean Platelet Volume 9.6 fL (7.4-10.4); Platelet Count 228 K/uL (130-400); RDW Coefficient of Variation 16.7 % (11.5-14.5); RDW Standard Deviation 51.3 fL (36.4-46.3); Red Blood Count 4.24 M/uL (4.2-5.4); White Blood Count 10.48 K/uL (4.8-10.8)
[2020-11-13] MEDS: LACTATED RINGER'S 1,000 ML IV PRN ×2 (18:42→20:10)
[2020-11-13] MEDS ORDERED: ePHEDrine sulfate 50 MG/ML AMP ONE (19:00)
[2020-11-13] MEDS ORDERED: BUPIVACAINE 0.25% 30 ML VIAL ONE (19:00)
[2020-11-13] MEDS ORDERED: SODIUM CHLORIDE 0.9% INJ 10 ML VIAL ONE (19:00)
[2020-11-13] MEDS ORDERED: fentaNYL citrate 100 MCG/2 ML VIAL ONE (19:00)
[2020-11-13] MEDS ORDERED: fentaNYL 2MCG/ML ROPIVACAINE 1.25MG/ML 100 ML BAG EPI ONE (19:01)
--- NOTE | 2020-11-13 19:14 | Anesthesiology Consultation ---
Date of Service November 13, 2020 Assessment & Plan Chart Review Chart Review: Acceptable Risk for Surgery, Patient NOT seen in Pre Admission Testing and Acceptable Risk for Labor Epidural Consults Requested none ASA ASA3 Proposed Anesthesia Anesthesia Type: Labor Epidural and CSE History Height/Weight Height: 5 ft 4 in Weight: 120.656 kg Allergies Allergy/AdvReac Type Severity Reaction Status Date / Time amoxicillin Allergy Severe HIVES Verified 11/13/20 15:35 Medications Home Medications Medication Instructions Recorded Confirmed Last Taken albuterol sulfate 90 mcg/actuation 2 puff INHALATION UD PRN gm 10/07/18 11/13/20 Unknown aerosol inhaler (Ventolin HFA) prenat.vits,noé,ejb-gwng-xecqn 1 tab PO DAILY 12/26/19 11/13/20 11/12/20 lansoprazole 15 mg capsule,delayed 15 mg PO DAILY 03/06/20 11/13/20 11/13/20 07:00 release doxylamine succinate 25 mg tablet 25 mg PO HS PRN tab 04/08/20 11/13/20 11/12/20 (Unisom (doxylamine)) plexus PO 04/08/20 11/13/20 11/13/20 pyridoxine (vitamin B6) [Vitamin PO 05/22/20 11/13/20 Unknown B-6] breast pump #1 ea 11/01/20 11/13/20 Unknown breast pump #1 ea 11/01/20 11/13/20 Unknown Active Medications Generic Name Dose Route Start Last Admin Trade Name Freq PRN Reason Stop Dose Admin Lactated Ringer's 1,000 mls @ 125 mls/hr 11/13/20 17:09 11/13/20 18:42 Lr IV 11/15/20 17:08 999 mls/hr .Q8H PRN Administration L&D Protocol Protocol Past Medical History Medical History Anxiety No meds Llanes's palsy 2016; 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 Depression No meds Exercise-induced asthma Inhaler prn GERD (gastroesophageal reflux disease) On meds HPV (human papilloma virus) infection 2011 and 2012 IBS (irritable bowel syndrome) On meds Thin meconium stained amniotic fluid Exercise / Class Metabolic Activity II 4-5 Yardwork/Stairs/Walk up hill Past Family History Family History Sister Anxiety Mother Endometriosis Hypertension Dyslipidemia Grandmother (Maternal) Breast cancer, Onset Age: 40 Multiple gestation Grandmother (Paternal) Colorectal cancer, Onset Age: 75 Depression Diabetes Multiple gestation great Father Depression Diabetes Hypertension Uncle Diabetes Denies family history of Ovarian cancer Prostate cancer Uterine cancer Past Surgical History Surgical History History of colposcopy 2011 and 2012 Hx of LASIK 2010 Past Anesthesia History No Hx of Anesthesia Complications and No Family Hx of Anesthesia Complications History of PONV No Hx of PONV and No Hx of Motion Sickness Social History Smoking Status: Never smoker Hx Alcohol Use: No Hx Substance Use: No substance use type: does not use Physical Exam Vital Signs Last Vital Signs Temp 36.8 C 11/13/20 16:47 Pulse 95 H 11/13/20 19:07 Resp 20 11/13/20 16:47 BP 113/63 11/13/20 16:47 Pulse Ox 100 11/13/20 19:07 Testing Laboratory Results 11/13/20 17:36
[2020-11-13] MEDS ORDERED: NALBUPHINE HCL INJ 10 MG/ML AMP IV PRN (19:52)
[2020-11-13] MEDS ORDERED: ePHEDrine sulfate 50 MG/ML AMP IV PRN (19:52)
[2020-11-13] MEDS ORDERED: fentaNYL 2MCG/ML ROPIVACAINE 1.25MG/ML 100 ML BAG EPI PRN (19:52)
[2020-11-13] MEDS ORDERED: NALOXONE HCL 0.4 MG/1 ML VIAL/CARP IV PRN (19:52)
[2020-11-13] MEDS ORDERED: diphenhydrAMINE 50 MG/ML VIAL IV PRN (19:52)
[2020-11-13] MEDS ORDERED: ONDANSETRON INJ 2 MG/ML 2 ML VIAL IV PRN (19:52)
[2020-11-13] MEDS ORDERED: NALOXONE HCL 1 MG in SODIUM CHLORIDE 0.9% 1000ML 1,000 ML IV PRN (19:52)
[2020-11-13] MEDS ORDERED: PROMETHAZINE HCL 25 MG in SODIUM CHLORIDE 0.9% 50 ML IV PRN (19:52)
--- NOTE | 2020-11-13 21:47 | Labor Progress Brief Note ---
Date of Service November 13, 2020 Subjective Comfortable with epidural. FHT Cat 1 [place] Q 2-4 SVE 4-5/90/-2 Rec pitocin for more regular ctx pattern, to better position head into pelvis prior to AROM. Assessment & Plan Admission and Anticipated Discharge Date Admission Date: November 13, 2020 Results & Data ([facility]) Vital Signs (Past 12 Hours) Vital Signs Temp Pulse Resp BP Pulse Ox 11/13/20 21:34 83 103/53 L 11/13/20 21:32 90 97 11/13/20 21:27 87 98 11/13/20 21:22 92 H 96 11/13/20 21:17 86 129/71 98 11/13/20 21:12 91 H 98 11/13/20 21:07 89 98 11/13/20 21:04 95 H 112/58 L 11/13/20 21:02 91 H 96 11/13/20 21:00 18 11/13/20 20:57 85 98 11/13/20 20:52 87 98 11/13/20 20:47 96 H 98 11/13/20 20:46 86 113/63 11/13/20 20:42 88 98 11/13/20 20:37 93 H 99 11/13/20 20:32 95 H 98 11/13/20 20:30 36.8 C 18 11/13/20 20:29 93 H 94 11/13/20 20:27 93 H 98 11/13/20 20:22 96 H 97 11/13/20 20:17 98 H 98 11/13/20 20:15 92 H 121/69 11/13/20 20:12 92 H 99 11/13/20 20:07 101 H 101/58 L 99 11/13/20 20:05 88 101/52 L 11/13/20 20:03 100 H 100/51 L 11/13/20 20:02 99 H 106/56 L 99 11/13/20 19:59 103 H 100/55 L 11/13/20 19:58 98 H 100/58 L 11/13/20 19:57 100 H 100 11/13/20 19:56 94 H 114/57 L 11/13/20 19:54 95 H 95/54 L 11/13/20 19:53 106 H 89/51 L 11/13/20 19:52 98 H 82/50 L 98 11/13/20 19:50 96 H 81/51 L 11/13/20 19:48 100 H 97/55 L 11/13/20 19:47 97 H 98 11/13/20 19:46 103 H 112/59 L 11/13/20 19:44 93 H 118/80 11/13/20 19:42 98 H 99 11/13/20 19:37 91 H 99 11/13/20 19:32 85 100 11/13/20 19:31 93 H 111/66 11/13/20 19:27 95 H 99 11/13/20 19:22 99 H 99 11/13/20 19:17 92 H 98 11/13/20 19:12 92 H 98 11/13/20 19:07 95 H 100 11/13/20 17:14 102 H 98 11/13/20 17:09 95 H 98 11/13/20 17:04 97 H 99 11/13/20 16:59 96 H 99 11/13/20 16:54 97 H 98 11/13/20 16:49 97 H 98 11/13/20 16:47 36.8 C 94 H 20 113/63 99 11/13/20 16:44 96 H 98 11/13/20 16:41 90 113/63 11/13/20 16:39 102 H 99 11/13/20 16:34 83 98 Coding Level of Care Code None
[2020-11-14] MEDS: LACTATED RINGER'S 1,000 ML IV PRN (04:22)
--- NOTE | 2020-11-14 06:37 | Labor Progress Brief Note ---
Date of Service November 14, 2020 Subjective Comfortable with epidural. FHT Cat 1 [place] Q 2 SVE 6-7/90/0 Much more regular ctx pattern, head well applied to cervix. AROM clear fluid. Assessment & Plan Admission and Anticipated Discharge Date Admission Date: November 13, 2020 Results & Data ([facility]) Vital Signs (Past 12 Hours) Vital Signs Temp Pulse Resp BP Pulse Ox 11/14/20 06:33 108 H 99 11/14/20 06:28 88 98 11/14/20 06:23 87 98 11/14/20 06:18 88 97 11/14/20 06:16 86 98/53 L 11/14/20 06:14 81 94/52 L 11/14/20 06:13 82 97 11/14/20 06:12 82 99/53 L 11/14/20 06:10 82 100/54 L 11/14/20 06:08 84 111/53 L 98 11/14/20 06:06 85 80/49 L 11/14/20 06:03 84 96 11/14/20 06:01 80 71/42 L 11/14/20 06:00 18 11/14/20 05:58 78 96 11/14/20 05:53 79 96 11/14/20 05:48 81 104/54 L 97 11/14/20 05:43 80 96 11/14/20 05:38 77 97 11/14/20 05:33 81 97 11/14/20 05:31 79 104/55 L 11/14/20 05:30 18 11/14/20 05:28 76 97 11/14/20 05:23 79 96 11/14/20 05:18 80 96 11/14/20 05:17 79 97/51 L 11/14/20 05:13 80 96 11/14/20 05:08 85 98 11/14/20 05:03 82 99 11/14/20 05:01 81 90/52 L 11/14/20 05:00 18 11/14/20 04:58 81 96 11/14/20 04:53 90 97 11/14/20 04:48 78 98/52 L 97 11/14/20 04:43 80 97 11/14/20 04:38 80 97 11/14/20 04:33 81 97 11/14/20 04:31 84 90/54 L 11/14/20 04:30 18 11/14/20 04:28 78 97 11/14/20 04:23 79 97 11/14/20 04:20 36.5 C 11/14/20 04:18 95 H 99 11/14/20 04:17 83 102/51 L 11/14/20 04:13 101 H 98 11/14/20 04:08 103 H 98 11/14/20 04:03 83 98 11/14/20 04:02 96 H 116/68 11/14/20 03:58 93 H 98 11/14/20 03:53 97 H 97 11/14/20 03:48 91 H 96 11/14/20 03:46 88 113/66 11/14/20 03:43 89 96 11/14/20 03:38 91 H 96 11/14/20 03:33 90 96 11/14/20 03:31 87 111/62 11/14/20 03:28 91 H 96 11/14/20 03:23 87 97 11/14/20 03:18 90 97 11/14/20 03:16 89 118/56 L 11/14/20 03:13 89 97 11/14/20 03:08 80 97 11/14/20 03:03 92 H 97 11/14/20 03:00 90 112/63 11/14/20 02:58 86 97 11/14/20 02:53 89 98 11/14/20 02:48 87 97 11/14/20 02:47 85 110/60 11/14/20 02:43 85 97 11/14/20 02:38 92 H 98 11/14/20 02:33 86 98 11/14/20 02:31 77 107/56 L 11/14/20 02:30 18 11/14/20 02:28 96 H 98 11/14/20 02:23 80 99 11/14/20 02:18 91 H 98 11/14/20 02:13 90 97 11/14/20 02:08 86 98 11/14/20 02:03 86 97 11/14/20 02:00 18 11/14/20 01:58 84 97 11/14/20 01:53 87 97 11/14/20 01:48 83 97 11/14/20 01:47 84 109/55 L 11/14/20 01:43 90 98 11/14/20 01:38 85 97 11/14/20 01:33 84 97 11/14/20 01:32 80 98/56 L 11/14/20 01:30 18 11/14/20 01:28 86 97 11/14/20 01:23 85 97 11/14/20 01:18 83 97 11/14/20 01:15 76 96/58 L 11/14/20 01:13 83 98 11/14/20 01:08 83 97 11/14/20 01:03 82 97 11/14/20 01:01 79 96/60 L 11/14/20 01:00 18 11/14/20 00:58 91 H 97 11/14/20 00:53 85 99 11/14/20 00:48 89 98 11/14/20 00:46 75 101/51 L 11/14/20 00:43 85 98 11/14/20 00:38 85 98 11/14/20 00:33 89 98 11/14/20 00:31 85 112/60 11/14/20 00:30 18 11/14/20 00:28 82 98 11/14/20 00:23 85 99 11/14/20 00:22 36.6 C 11/14/20 00:18 84 96 11/14/20 00:13 73 97 11/14/20 00:08 86 97 11/14/20 00:03 92 H 99 11/14/20 00:01 96 H 114/67 11/14/20 00:00 18 11/13/20 23:58 98 H 97 11/13/20 23:53 94 H 98 11/13/20 23:48 101 H 97 11/13/20 23:43 91 H 97 11/13/20 23:38 92 H 98 11/13/20 23:33 98 H 98 11/13/20 23:30 18 11/13/20 23:28 98 H 97 11/13/20 23:23 98 H 97 11/13/20 23:18 98 H 97 11/13/20 23:13 99 H 96 11/13/20 23:08 98 H 96 11/13/20 23:03 101 H 98 11/13/20 23:00 18 11/13/20 22:58 101 H 97 11/13/20 22:53 97 H 98 11/13/20 22:48 100 H 98 11/13/20 22:43 103 H 99 11/13/20 22:38 104 H 97 11/13/20 22:33 95 H 97 11/13/20 22:31 96 H 119/67 11/13/20 22:30 36.7 C 18 11/13/20 22:28 94 H 98 11/13/20 22:23 92 H 97 11/13/20 22:18 93 H 97 11/13/20 22:17 93 H 111/67 11/13/20 22:13 92 H 98 11/13/20 22:08 82 98 11/13/20 22:03 88 94/53 L 98 11/13/20 22:00 18 11/13/20 21:58 84 98 11/13/20 21:53 80 97 11/13/20 21:48 95 H 97 11/13/20 21:47 87 111/52 L 11/13/20 21:43 85 98 11/13/20 21:38 81 98 11/13/20 21:34 83 103/53 L 11/13/20 21:32 90 97 11/13/20 21:30 18 11/13/20 21:27 87 98 11/13/20 21:22 92 H 96 11/13/20 21:17 86 129/71 98 11/13/20 21:12 91 H 98 11/13/20 21:07 89 98 11/13/20 21:04 95 H 112/58 L 11/13/20 21:02 91 H 96 11/13/20 21:00 18 11/13/20 20:57 85 98 11/13/20 20:52 87 98 11/13/20 20:47 96 H 98 11/13/20 20:46 86 113/63 11/13/20 20:42 88 98 11/13/20 20:37 93 H 99 11/13/20 20:32 95 H 98 11/13/20 20:30 36.8 C 18 11/13/20 20:29 93 H 94 11/13/20 20:27 93 H 98 11/13/20 20:22 96 H 97 11/13/20 20:17 98 H 98 11/13/20 20:15 92 H 121/69 11/13/20 20:12 92 H 99 09/15/21 20:07 101 H 101/58 L 99 11/13/20 20:05 88 101/52 L 11/13/20 20:03 100 H 100/51 L 11/13/20 20:02 99 H 106/56 L 99 11/13/20 19:59 103 H 100/55 L 11/13/20 19:58 98 H 100/58 L 11/13/20 19:57 100 H 100 11/13/20 19:56 94 H 114/57 L 11/13/20 19:54 95 H 95/54 L 11/13/20 19:53 106 H 89/51 L 11/13/20 19:52 98 H 82/50 L 98 11/13/20 19:50 96 H 81/51 L 11/13/20 19:48 100 H 97/55 L 11/13/20 19:47 97 H 98 11/13/20 19:46 103 H 112/59 L 11/13/20 19:44 93 H 118/80 11/13/20 19:42 98 H 99 11/13/20 19:37 91 H 99 11/13/20 19:32 85 100 11/13/20 19:31 93 H 111/66 11/13/20 19:27 95 H 99 11/13/20 19:22 99 H 99 11/13/20 19:17 92 H 98 11/13/20 19:12 92 H 98 11/13/20 19:07 95 H 100 Coding Level of Care Code None
[2020-11-14] MEDS ORDERED: Nursing to Pharmacy Communication SCH (07:45)
[2020-11-14] MEDS ORDERED: SUPERCREAM 0.870% 15 GM JAR EXT PRN (08:37)
[2020-11-14] MEDS ORDERED: bisacodyL 10 MG SUPP PR PRN (08:37)
[2020-11-14] MEDS ORDERED: BENZOCAINE 20% AER SPR 82.5 GM CAN EXT PRN (08:37)
[2020-11-14] MEDS ORDERED: ALBUTEROL HFA 8 GM INHALER INH PRN (08:37)
[2020-11-14] MEDS ORDERED: HYDROCORTISONE ACETATE 25 MG SUPP PR PRN (08:37)
[2020-11-14] MEDS ORDERED: OXYTOCIN 30 UNITS/500 ML BAG IV PRN (08:37)
[2020-11-14] MEDS ORDERED: oxyCODONE/ACETAMINOPHEN 5mg/325mg TAB PO PRN (08:37)
[2020-11-14] MEDS ORDERED: DIPHTHERIA/TETANUS/PERTUSSIS 0.5 ML SYR/VIAL IM ONE (08:37)
--- NOTE | 2020-11-14 08:49 | Delivery Summary ---
Vaginal Delivery Summary Date of Service November 14, 2020 Vaginal Delivery Summary and 3rd Degree LAC Vaginal Delivery Summary: Pre-delivery diagnoses: 35yo @ 38 4/7, spontaneous labor, LGA, obesity, AMA Post-delivery diagnoses: same Procedure: spontaneous vaginal delivery, repair of partial 3rd degree perineal laceration Surgeon: Rosalva Wood DO Complications: none Findings: Viable male . Apgars: 8/9. Weight pending, please see nursery records Estimated blood loss: 300ml Description of delivery: The patient progressed to complete with epidural anesthesia. She then began to push. She spontaneously vaginally delivered a viable from the cephalic presentation. The head delivered in RENY position. The anterior shoulder delivered, followed by the posterior shoulder, followed by the body. The baby was placed on mother's abdomen and a spontaneous cry was heard. Delayed cord clamping was employed, and the cord was doubly clamped and cut. Cord blood was obtained. The placenta was delivered spontaneously intact with a 3-vessel cord. The uterus and vagina were swept of clots and debris. IV pitocin was given. The uterus became firm. The cervix, vagina, and perineum were inspected and a partial 3rd degree perineal laceration was noted, repaired in standard fashion. First, a 3-0 chromic bneyuw-ot-icrbl stitch on the anterior aspect of the anal sphincter muscle. The tear only disrupted a small anterior part of the muscle. The remaining laceration was repaired with 3-0 vicryl in standard fashion. Excellent hemostasis was observed. The mother and baby are recovering in stable and good condition in the room. Sponge, needle and instrument counts were correct x 2. Rosalva Wood DO [facility] Vaginal Delivery Charge Vaginal Delivery Codes: 84207 global code for the antepartum, delivery, and post- Delivery Type Details: and 3rd Degree LAC
[2020-11-14] MEDS ORDERED: NON-FORMULARY MEDICATION (Prenat.Vits,Cal,Min-Iron-Folic tablet) PO SCH (09:00)
[2020-11-14] MEDS: PANTOprazole 40 MG TAB PO SCH (10:22)
--- NOTE | 2020-11-14 10:22 | Anesthesiology Progress Note ---
Date of Service November 14, 2020 Anesthesia Post Procedure Vital Signs Vital Signs: Temp Pulse Resp BP Pulse Ox 11/14/20 10:07 100 H 116/63 11/14/20 09:52 91 H 107/59 L 11/14/20 09:51 20 11/14/20 09:37 85 101/50 L 11/14/20 09:22 85 113/60 11/14/20 09:21 20 11/14/20 09:06 86 110/56 L 11/14/20 08:52 80 114/65 11/14/20 08:51 20 11/14/20 08:36 77 20 112/62 11/14/20 08:21 91 H 20 111/64 11/14/20 07:58 98 H 99 11/14/20 07:53 108 H 96 11/14/20 07:48 98 H 99 11/14/20 07:45 93 H 86 L 11/14/20 07:43 101 H 100 11/14/20 07:38 90 98 11/14/20 07:34 93 H 106/56 L 11/14/20 07:33 93 H 98 11/14/20 07:28 89 98 11/14/20 07:23 95 H 97 11/14/20 07:18 96 H 120/74 98 11/14/20 07:13 92 H 98 11/14/20 07:08 96 H 99 11/14/20 07:03 91 H 98 11/14/20 07:02 37.6 C H 94 H 20 112/73 11/14/20 07:00 18 11/14/20 06:58 93 H 98 11/14/20 06:53 90 98 11/14/20 06:49 91 H 109/65 11/14/20 06:48 92 H 97 11/14/20 06:43 89 98 11/14/20 06:38 95 H 99 11/14/20 06:33 108 H 99 11/14/20 06:30 18 11/14/20 06:28 88 98 11/14/20 06:23 87 98 11/14/20 06:18 88 97 11/14/20 06:16 86 98/53 L 11/14/20 06:14 81 94/52 L 11/14/20 06:13 82 97 11/14/20 06:12 82 99/53 L 11/14/20 06:10 82 100/54 L 11/14/20 06:08 84 111/53 L 98 11/14/20 06:06 85 80/49 L 11/14/20 06:03 84 96 11/14/20 06:01 80 71/42 L 11/14/20 06:00 18 11/14/20 05:58 78 96 11/14/20 05:53 79 96 11/14/20 05:48 81 104/54 L 97 11/14/20 05:43 80 96 11/14/20 05:38 77 97 11/14/20 05:33 81 97 11/14/20 05:31 79 104/55 L 11/14/20 05:30 18 11/14/20 05:28 76 97 11/14/20 05:23 79 96 11/14/20 05:18 80 96 11/14/20 05:17 79 97/51 L 11/14/20 05:13 80 96 11/14/20 05:08 85 98 11/14/20 05:03 82 99 11/14/20 05:01 81 90/52 L 11/14/20 05:00 18 11/14/20 04:58 81 96 11/14/20 04:53 90 97 11/14/20 04:48 78 98/52 L 97 11/14/20 04:43 80 97 11/14/20 04:38 80 97 11/14/20 04:33 81 97 11/14/20 04:31 84 90/54 L 11/14/20 04:30 18 11/14/20 04:28 78 97 11/14/20 04:23 79 97 11/14/20 04:20 36.5 C 11/14/20 04:18 95 H 99 11/14/20 04:17 83 102/51 L 11/14/20 04:13 101 H 98 11/14/20 04:08 103 H 98 11/14/20 04:03 83 98 11/14/20 04:02 96 H 116/68 11/14/20 03:58 93 H 98 11/14/20 03:53 97 H 97 11/14/20 03:48 91 H 96 11/14/20 03:46 88 113/66 11/14/20 03:43 89 96 11/14/20 03:38 91 H 96 11/14/20 03:33 90 96 11/14/20 03:31 87 111/62 11/14/20 03:28 91 H 96 11/14/20 03:23 87 97 11/14/20 03:18 90 97 11/14/20 03:16 89 118/56 L 11/14/20 03:13 89 97 11/14/20 03:08 80 97 11/14/20 03:03 92 H 97 11/14/20 03:00 90 112/63 11/14/20 02:58 86 97 11/14/20 02:53 89 98 11/14/20 02:48 87 97 11/14/20 02:47 85 110/60 11/14/20 02:43 85 97 11/14/20 02:38 92 H 98 11/14/20 02:33 86 98 11/14/20 02:31 77 107/56 L 11/14/20 02:30 18 11/14/20 02:28 96 H 98 11/14/20 02:23 80 99 11/14/20 02:18 91 H 98 11/14/20 02:13 90 97 11/14/20 02:08 86 98 11/14/20 02:03 86 97 11/14/20 02:00 18 11/14/20 01:58 84 97 11/14/20 01:53 87 97 11/14/20 01:48 83 97 11/14/20 01:47 84 109/55 L 11/14/20 01:43 90 98 11/14/20 01:38 85 97 11/14/20 01:33 84 97 11/14/20 01:32 80 98/56 L 11/14/20 01:30 18 11/14/20 01:28 86 97 11/14/20 01:23 85 97 11/14/20 01:18 83 97 11/14/20 01:15 76 96/58 L 11/14/20 01:13 83 98 11/14/20 01:08 83 97 11/14/20 01:03 82 97 11/14/20 01:01 79 96/60 L 11/14/20 01:00 18 11/14/20 00:58 91 H 97 11/14/20 00:53 85 99 11/14/20 00:48 89 98 11/14/20 00:46 75 101/51 L 11/14/20 00:43 85 98 11/14/20 00:38 85 98 11/14/20 00:33 89 98 11/14/20 00:31 85 112/60 11/14/20 00:30 18 11/14/20 00:28 82 98 11/14/20 00:23 85 99 11/14/20 00:22 36.6 C 11/14/20 00:18 84 96 11/14/20 00:13 73 97 11/14/20 00:08 86 97 11/14/20 00:03 92 H 99 11/14/20 00:01 96 H 114/67 11/14/20 00:00 18 11/13/20 23:58 98 H 97 11/13/20 23:53 94 H 98 11/13/20 23:48 101 H 97 11/13/20 23:43 91 H 97 11/13/20 23:38 92 H 98 11/13/20 23:33 98 H 98 11/13/20 23:30 18 11/13/20 23:28 98 H 97 11/13/20 23:23 98 H 97 11/13/20 23:18 98 H 97 11/13/20 23:13 99 H 96 11/13/20 23:08 98 H 96 11/13/20 23:03 101 H 98 11/13/20 23:00 18 11/13/20 22:58 101 H 97 11/13/20 22:53 97 H 98 11/13/20 22:48 100 H 98 11/13/20 22:43 103 H 99 11/13/20 22:38 104 H 97 11/13/20 22:33 95 H 97 11/13/20 22:31 96 H 119/67 11/13/20 22:30 36.7 C 18 11/13/20 22:28 94 H 98 11/13/20 22:23 92 H 97 11/13/20 22:18 93 H 97 11/13/20 22:17 93 H 111/67 11/13/20 22:13 92 H 98 11/13/20 22:08 82 98 11/13/20 22:03 88 94/53 L 98 11/13/20 22:00 18 11/13/20 21:58 84 98 09/15/21 21:53 80 97 11/13/20 21:48 95 H 97 11/13/20 21:47 87 111/52 L 11/13/20 21:43 85 98 11/13/20 21:38 81 98 11/13/20 21:34 83 103/53 L 11/13/20 21:32 90 97 11/13/20 21:30 18 11/13/20 21:27 87 98 11/13/20 21:22 92 H 96 11/13/20 21:17 86 129/71 98 11/13/20 21:12 91 H 98 11/13/20 21:07 89 98 11/13/20 21:04 95 H 112/58 L 11/13/20 21:02 91 H 96 11/13/20 21:00 18 11/13/20 20:57 85 98 11/13/20 20:52 87 98 11/13/20 20:47 96 H 98 11/13/20 20:46 86 113/63 11/13/20 20:42 88 98 11/13/20 20:37 93 H 99 11/13/20 20:32 95 H 98 11/13/20 20:30 36.8 C 18 11/13/20 20:29 93 H 94 11/13/20 20:27 93 H 98 11/13/20 20:22 96 H 97 11/13/20 20:17 98 H 98 11/13/20 20:15 92 H 121/69 11/13/20 20:12 92 H 99 11/13/20 20:07 101 H 101/58 L 99 11/13/20 20:05 88 101/52 L 11/13/20 20:03 100 H 100/51 L 11/13/20 20:02 99 H 106/56 L 99 11/13/20 19:59 103 H 100/55 L 11/13/20 19:58 98 H 100/58 L 11/13/20 19:57 100 H 100 11/13/20 19:56 94 H 114/57 L 11/13/20 19:54 95 H 95/54 L 11/13/20 19:53 106 H 89/51 L 11/13/20 19:52 98 H 82/50 L 98 11/13/20 19:50 96 H 81/51 L 11/13/20 19:48 100 H 97/55 L 11/13/20 19:47 97 H 98 11/13/20 19:46 103 H 112/59 L 11/13/20 19:44 93 H 118/80 11/13/20 19:42 98 H 99 11/13/20 19:37 91 H 99 11/13/20 19:32 85 100 11/13/20 19:31 93 H 111/66 11/13/20 19:27 95 H 99 11/13/20 19:22 99 H 99 11/13/20 19:17 92 H 98 11/13/20 19:12 92 H 98 11/13/20 19:07 95 H 100 11/13/20 17:14 102 H 98 11/13/20 17:09 95 H 98 11/13/20 17:04 97 H 99 11/13/20 16:59 96 H 99 11/13/20 16:54 97 H 98 11/13/20 16:49 97 H 98 11/13/20 16:47 36.8 C 94 H 20 113/63 99 11/13/20 16:44 96 H 98 11/13/20 16:41 90 113/63 11/13/20 16:39 102 H 99 11/13/20 16:34 83 98 Pain Intensity Pelvic: Pain Intensity: 0 Transfer of Care Handoff Completed per policy Notes Mental Status: alert / awake / arousable and participated in evaluation Patient Amnestic to Procedure: Yes Nausea / Vomiting: adequately controlled Pain: adequately controlled Airway Patency, RR, SpO2: stable & adequate BP & HR: stable & adequate Hydration State: stable & adequate Anesthetic Complications: no major complications apparent and Pt Satisfied with anesthetic care
[2020-11-14] MEDS: IBUPROFEN 600 MG TAB PO PRN ×3 (10:25→21:28)
[2020-11-14] MEDS: ACETAMINOPHEN 325 MG TAB PO PRN ×2 (17:30→23:26)
[2020-11-14] MEDS: DOCUSATE SODIUM 100 MG CAP PO SCH (21:28)
[2020-11-15] MEDS: IBUPROFEN 600 MG TAB PO PRN ×2 (05:27→13:06)
[2020-11-15 06:36] LABS: Hemoglobin 9.8 g/dL (12.0-16.0)
--- NOTE | 2020-11-15 07:12 | Obstetrical Progress Note ---
Date of Service November 15, 2020 Assessment & Plan (1) Encounter for care and examination after delivery: Plan: 35yo PPD 1 s/p at 38 weeks -Continue routine care -Vitals reviewed- HDS, afebrile -Encourage ambulation, regular diet -Pain control with ibuprofen, acetaminophen PRN -Hgb 9.8 -abdominal binder ordered for abdominal tenderness -discharge likely today, f/u in 6 weeks with OB Admission and Anticipated Discharge Date Admission Date: November 13, 2020 Supervising Physician Co-Signing Physician Notes Resident Physician Supervision Note: I interviewed and examined the patient. Discussed with Dr. Flood and agree with findings and plan as documented in the note. Any exceptions or clarifications are listed here: PP1, noting some abdominal pain improving with pain meds. Notes pain feels like pressure and not enough support. VSS, exam benign and wnl. Meeting pp milestones. Will order binder, pt does desire d/c home today. Stable for d/c, f/u 6 wks Documented By: Debbie Jc MD Subjective PPD 1 s/p . Patient seen and examined at bedside. Reports no acute overnight events. Ambulating and voiding. Has passed gas, not yet stool. Regular diet w/o N/V. Bottle Feeding). Pain 4/10, mild-moderate abdominal tenderness, no pelvic pressure. Review of Systems Review of Systems: Denies fevers/chills. Denies dyspnea, cough. Denies chest pain. Denies breast pain or discharge. Denies dysuria. Denies headache. Mild back pain. Physical Exam Physical Exam: General: Alert, oriented, no acute distress Cardiac: Regular rate and rhythm, normal S1, S2. No murmurs appreciated. Respiratory: Clear to auscultation b/l with good air flow entry, symmetric chest rise and fall. No wheezes or crackles. No increased work of breathing or accessory muscle use Abdomen: Soft, mildly tender to palpation, nondistended. Fundus firm and palpable at umbilicus. No guarding or rebound. Skin: No rashes or lesions Extremities: Warm, dry, well-perfused with capillary refill <2s b/l. No lower extremity edema, erythema or swelling. Negative Princess's sign b/l. Results & Data ([facility]) Vital Signs (Past 12 Hours) Vital Signs Temp Pulse Resp BP Pulse Ox 11/15/20 03:00 36.5 C 80 18 103/70 98 11/14/20 23:20 36.5 C 80 16 115/74 97 Resident Activity Tracking Resident Involvement: Resident Care Provided Care Provided: OB Delivery
[2020-11-15] MEDS: DOCUSATE SODIUM 100 MG CAP PO SCH (07:37)
[2020-11-15] MEDS: ACETAMINOPHEN 325 MG TAB PO PRN (07:37)
[2020-11-15] MEDS ORDERED: PRENATAL VITAMIN 1 TAB PO SCH (08:00)
[2020-11-15] MEDS: PANTOprazole 40 MG TAB PO SCH (08:31)
[2020-11-15] MEDS ORDERED: FERROUS SULFATE 325 MG TAB PO SCH (09:00)
[2020-11-15] MEDS ORDERED: bisacodyL 5 MG TABEC PO SCH (20:00)
== END 2020-11-15 14:17 | disposition home or self-care (01) | DRG 768 ==
LOC: OPB 16:14 → 4S1 16:17 → 4S2 11-14 10:55